=== PATIENT | female | born 1985 | race African-American/Black ===

== ENCOUNTER 2016-08-28 07:16 | Emergency (ER) | payer MEDICAID, OTHER ==
[~2016-08-28] VITALS: Ht 177.8 cm; Wt 80.0 kg
[~2016-08-28 07:16] MED LIST: CYCL-36 PO; DICL50 PO
[2016-08-28 07:22] VITALS: BP 121/81; PULSE 88; RESP 16; TEMP 98; O2SAT 100
[2016-08-28] MEDS ORDERED: IBUP800T23 PO (07:44)
[2016-08-28] MEDS ORDERED: CYCL1TAB29 PO (07:44)
[2016-08-28] MEDS ORDERED: ORPHENADRINE INJ 60 MG/2 ML AMP IM ONE (07:45)
[2016-08-28] MEDS ORDERED: KETOROLAC TROMETHAMINE 60 MG/2 ML (IM) VIAL IM ONE (07:45)
--- NOTE | 2016-08-28 07:46 | PD ---
HPI Chief Complaint: Back/ Neck Pain or Injury Time Seen by Provider: 07:37 Travel History International Travel<30 days: No Contact w/Intl Traveler<30days: No Traveled to known affect area: No History of Present Illness HPI 30-year-old female presents to the emergency Department with complaint of right lower back pain 5 days. She has history of chronic low back pain for many years that is similar to her current symptoms. She states she's been working for the last 5 days and her pain has gotten worse. Denies injury, heavy lifting , straining. Denies fever, chills, nausea, vomiting. Denies encopresis, incontinence, saddle anesthesias. Denies paresthesias, loss of sensation, decreased range of motion, decreased strength to all extremities. Denies urinary urgency, frequency, hesitancy, dysuria. Denies IV drug use. Denies cancer. Is ambulatory with a guarded gait. Pain is aggravated with palpation, walking, movement. No known relieving factors. Has not tried any treatments or medications to alleviate her symptoms. Last menstrual period was this month. Denies risk of . Denies significant past medical history. No known allergies. No other modifying factors or associated signs and symptoms. PFSH Past Medical History Diminished Hearing: No ?: Not LMP: AUGUST 2016 : 4 Para: 4 Miscarriage: 0 Tubal Ligation: Yes Past Surgical History Other Surgery: Yes (BREAST SURGERY) Social History Alcohol Use: No Tobacco Use: No Substance Use: No Allergies-Medications (Allergen,Severity, Reaction): Coded Allergies: No Known Allergies (Unverified , 08/28/16) Reported Meds & Prescriptions Reported Meds & Active Scripts Active Flexeril (Cyclobenzaprine HCl) 10 Mg Tab 10 Mg PO TID PRN Ibuprofen 800 Mg Tab 800 Mg PO Q6HR PRN Review of Systems Except as stated in HPI: all other systems reviewed are Neg Physical Exam Narrative GENERAL: Well-nourished, well-developed female patient, in no acute distress; afebrile, nontoxic-appearing SKIN: Warm and dry. HEAD: Atraumatic. Normocephalic. EYES: Pupils equal and round. No scleral icterus. No injection or drainage. ENT: Mucosa pink and moist. Airway patent. NECK: Trachea midline. CARDIOVASCULAR: Regular rate and rhythm. No murmur appreciated. RESPIRATORY: No accessory muscle use. Breath sounds clear and equal bilaterally. No Retractions or tachypnea. GASTROINTESTINAL: Abdomen soft, non-tender, nondistended. Positive bowel sounds. No hepato-splenomegaly, or palpable masses. No guarding. MUSCULOSKELETAL: Bilateral lower extremities supple and non-tense with 2+ pedal pulses and sensory intact; with full range of motion and 5/5 strength. DTRs 2+. Active dorsiflexion and extension of bilateral feet. Right straight leg raise is positive for low back pain. Left straight leg raise is negative for low back pain. Ambulatory with guarded gait. Sitting up in bed at 90. No obvious deformities. No clubbing. No cyanosis. No edema. BACK: Right CVA tenderness. No midline point tenderness on palpation of the lumbar or thoracic spine. Tenderness on palpation of right iliosacral area. No obvious deformities. NEUROLOGICAL: Awake and alert. Oriented 3. No obvious cranial nerve deficits. Motor grossly within normal limits. Normal speech. Moves all extremities. 5/5 strength to all extremities. Sensory intact. PSYCHIATRIC: Appropriate mood and affect; insight and judgment normal. Data Data Last Documented VS Vital Signs Date Time Temp Pulse Resp B/P Pulse Ox O2 Delivery O2 Flow Rate FiO2 08/28/16 07:22 98.0 88 16 121/81 100 Orders Urinalysis - C+S If Indicated (08/28/16 07:35) Ketorolac Inj (Toradol Inj) (08/28/16 07:45) Orphenadrine Inj (Norflex Inj) (08/28/16 07:45) Labs Laboratory Tests Test 08/28/16 07:40 Urine Color LIGHT-YELLOW Urine Turbidity HAZY Urine pH 7.0 Urine Specific [place] 1.013 Urine Protein NEG mg/dL Urine Glucose (UA) NEG mg/dL Urine Ketones NEG mg/dL Urine Occult Blood NEG Urine Nitrite NEG Urine Bilirubin NEG Urine Urobilinogen LESS THAN 2.0 MG/DL Urine Leukocyte Esterase LARGE Urine RBC LESS THAN 1 /hpf Urine WBC 7 /hpf Urine Squamous Epithelial 2 /hpf Cells Microscopic Urinalysis Comment CULT NOT INDICATED MDM Medical Decision Making Medical Screen Exam Complete: Yes Emergency Medical Condition: Yes Medical Record Reviewed: Yes Differential Diagnosis Acute exacerbation of chronic low back pain, low back strain, urinary tract infection, pyelonephritis Narrative Course 30-year-old female with history of chronic low back pain with acute exacerbation of chronic low back pain. Afebrile in the ER. Denies fever, chills, nausea, vomiting. Denies IV drug use. Denies cancer. Patient is ambulatory with a gaurded gait. No midline point tenderness on palpation of the lumbar spine. I will order Urinalysis to rule out UTI. Patient denies urinary symptoms. Toradol and Norflex administered in the ER. Urinalysis ordered. 0815: Urinalysis without signs of infection. Ibuprofen and Flexeril prescribed for home. Patient is medically cleared and stable for discharge. Discussed reasons to return to the emergency department. Instructed patient to follow up with primary care provider. Patient agrees with treatment plan. The patients vital signs are stable and the patient is stable for outpatient follow- up and treatment. Patient discharged home, stable and in no acute distress. Diagnosis Primary Impression: Acute exacerbation of chronic low back pain Referrals: Primary Care Physician Patient Instructions: Acute Low Back Pain (ED), General Instructions Departure Forms: Tests/Procedures, Work Release Enter return to work date: Aug 30, 2016 Additional Instructions: Tylenol or ibuprofen as directed and as needed for pain Flexeril as prescribed and as needed for muscle spasms Heating pad and/or ice to affected area to reduce pain Avoid aggravating activities; increase activity as tolerated Follow-up with primary care provider Return to emergency department immediately with worsening of symptoms Med/Other Pt SpecificInfo: Prescription(s) given Scripts Cyclobenzaprine (Flexeril)10 Mg Tab10 Mg PO TID PRN (MUSCLE SPASM) #30 TAB Ref 0 Prov:Maria Dolores Rose 08/28/16 Ibuprofen 800 Mg Uax254 Mg PO Q6HR PRN (PAIN) #30 TAB Ref 0 Prov:Maria Dolores Rose 08/28/16 Disposition: DISCHARGE HOME Condition: Stable Maria Dolores Rose Aug 28, 2016 07:46
[2016-08-28 07:58] LABS: BLOOD, URINE NEG (NEG); COMMENT (UR) CULT NOT INDICATED; CULTURE IF INDICATED CULT NOT INDICATED; GLUCOSE,URINE NEG (NEG); KETONE, URINE NEG (NEG); NITRITE,URINE NEG (NEG); SQUAMOUS EPITHELIAL CELL URINE 2 /hpf (0-5); URINE COLOR LIGHT-YELLOW (YELLW/STRAW)
== END 2016-08-28 08:55 | disposition home or self-care (01) ==
LOC: NEPB 07:16
DX: M54.5 Low back pain (principal); G89.29 Other chronic pain
CPT/HCPCS: 81001; 96372; 99283; J1885; J2360

== ENCOUNTER 2017-02-10 09:17 | Emergency (ER) | payer OTHER ==
[~2017-02-10 09:17] MED LIST changes: -CYCL-36 PO; +CYCL1TAB29 PO; -DICL50 PO; +IBUP800T23 PO
[2017-02-10 11:04] LABS: MEAN CORPUSCULAR HGB CONC 28.5 % (32.0-36.0)
--- NOTE | 2017-02-10 11:07 | PD ---
HPI Chief Complaint: Cardiac Complaint Time Seen by Provider: 10:53 Travel History International Travel<30 days: No Contact w/Intl Traveler<30days: No Traveled to known affect area: No History of Present Illness HPI 31-year-old female complains of chest pain. Patient states that the chest pain started last night. Patient states the pain is stabbing pain substernally with radiation to the back. Patient states that she has short of breath with the chest pain. Patient states that the pains better today however has been intermittent since last night. Patient states that she has nausea and acid reflux symptoms with the pain. Patient denies history hypertension, diabetes, dyslipidemia. Patient is a smoker. Patient denies family history heart disease. Patient denies history of CAD. Patient denies history of GERD. Patient status post tubal ligation in the past. Patient states that she has menstruation period twice a month. 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 PFSH Past Medical History Medical History: Denies Significant Hx Diminished Hearing: No Tetanus Vaccination: > 5 Years Influenza Vaccination: No ?: Not LMP: 01/21/17 : 4 Para: 4 Miscarriage: 0 Tubal Ligation: Yes Past Surgical History Other Surgery: Yes (BREAST SURGERY) Social History Alcohol Use: Yes (wine on occasion) Tobacco Use: Yes (cigars) Substance Use: No Allergies-Medications (Allergen,Severity, Reaction): Coded Allergies: No Known Allergies (Unverified , 02/10/17) Reported Meds & Prescriptions Reported Meds & Active Scripts Active No Active Prescriptions or Reported Medications Review of Systems General / Constitutional: No: Fever Eyes: No: Visual changes HENT: No: Headaches Cardiovascular: Positive: Chest Pain or Discomfort Respiratory: No: Shortness of Breath Gastrointestinal: Positive: Nausea, No: Abdominal Pain Genitourinary: No: Dysuria Musculoskeletal: No: Pain Skin: No Rash Neurologic: No: Weakness Psychiatric: No: Depression Endocrine: No: Polydipsia Hematologic/Lymphatic: No: Easy Bruising Physical Exam Narrative GENERAL: Well-nourished, well-developed patient. SKIN: Focused skin assessment warm/dry. HEAD: Normocephalic. EYES: No scleral icterus. No injection or drainage. NECK: Supple, trachea midline. No JVD or lymphadenopathy. CARDIOVASCULAR: Regular rate and rhythm without murmurs, gallops, or rubs. RESPIRATORY: Breath sounds equal bilaterally. No accessory muscle use. GASTROINTESTINAL: Abdomen soft, nondistended. Patient has mild tenderness on palpation of the epigastric area. No rebound tenderness. No mass. Rectal exam Hemoccult negative. MUSCULOSKELETAL: No cyanosis, or edema. BACK: Nontender without obvious deformity. No CVA tenderness. Neurologic exam normal. Data Data Last Documented VS Vital Signs Date Time Temp Pulse Resp B/P Pulse Ox O2 Delivery O2 Flow Rate FiO2 02/10/17 11:26 100 02/10/17 11:25 98.4 79 15 116/70 Room Air Orders Complete Blood Count With Diff (02/10/17 11:01) Comprehensive Metabolic Panel (02/10/17 11:) Creatine Kinase (Cpk) (02/10/17 11:01) Troponin I (02/10/17 11:01) Lipase (02/10/17 11:01) Chest, Single Ap (02/10/17 11:) Iv Access Insert/Monitor (02/10/17 11:) Ecg Monitoring (02/10/17 11:) Oximetry (02/10/17 11:01) Pantoprazole Inj (Protonix Inj) (02/10/17 11:15) Al-Mag Hy-Si 40-40-4 Mg/Ml Liq (Mag-Al P (02/10/17 11:15) Ceruy-Ibdojm-Lmeqav-Pb Liq ( Liq (02/10/17 11:15) Labs Laboratory Tests Test 02/10/17 11:15 White Blood Count 3.2 TH/MM3 Red Blood Count 3.77 MIL/MM3 Hemoglobin 6.7 GM/DL Hematocrit 23.4 % Mean Corpuscular Volume 62.0 FL Mean Corpuscular Hemoglobin 17.7 PG Mean Corpuscular Hemoglobin 28.5 % Concent Red Cell Distribution Width 17.7 % Platelet Count 223 TH/MM3 Mean Platelet Volume 9.3 FL Neutrophils (%) (Auto) 27.6 % Lymphocytes (%) (Auto) 57.0 % Monocytes (%) (Auto) 12.5 % Eosinophils (%) (Auto) 1.7 % Basophils (%) (Auto) 1.2 % Neutrophils # (Auto) 0.9 TH/MM3 Lymphocytes # (Auto) 1.8 TH/MM3 Monocytes # (Auto) 0.4 TH/MM3 Eosinophils # (Auto) 0.1 TH/MM3 Basophils # (Auto) 0.0 TH/MM3 CBC Comment AUTO DIFF Sodium Level 142 MEQ/L Potassium Level 3.4 MEQ/L Chloride Level 108 MEQ/L Carbon Dioxide Level 26.3 MEQ/L Anion Gap 8 MEQ/L Blood Urea Nitrogen 6 MG/DL Creatinine 0.56 MG/DL Estimat Glomerular Filtration 153 ML/MIN Rate Random Glucose 80 MG/DL Calcium Level 8.3 MG/DL Total Bilirubin 0.5 MG/DL Aspartate Amino Transf 11 U/L (AST/SGOT) Alanine Aminotransferase 17 U/L (ALT/SGPT) Alkaline Phosphatase 60 U/L Total Creatine Kinase 77 U/L Troponin I LESS THAN 0.02 NG/ML Total Protein 6.8 GM/DL Albumin 3.6 GM/DL Lipase 185 U/L MDM Medical Decision Making Medical Screen Exam Complete: Yes Emergency Medical Condition: Yes Interpretation(s) Last Impressions Chest X-Ray 02/10/17 1101 Signed Impressions: Service Date/Time: January 11:28 - CONCLUSION: No acute cardiopulmonary disease. Johnny Vasquez MD 12:20 PM. CBC WBC 3.2. Hemoglobin 6.7. Hematocrit 23.4. MCV 62.0. 57 lymphs. 12 monos. Potassium 3.4. Chloride 108. Cardiac enzymes are normal. Differential Diagnosis Differential diagnosis including GERD, esophagitis, gastritis, PUD, pancreatitis , cholecystitis, angina, ND, PE, pneumothorax. Narrative Course 31-year-old female with chest pain and nausea and reflux symptom. Protonix 40 mg IV. Maalox 30 cc by mouth. 10 cc by mouth. Patient is severe anemic. Patient was advised to be admitted. Patient refuses admission. Patient wants to go home and take medications. Diagnosis Primary Impression: Atypical chest pain Additional Impressions: Esophagitis Anemia Qualified Code: D64.9 - Anemia, unspecified type Patient Instructions: General Instructions Additional Instructions: Take medications as directed. 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 Return if worse. Med/Other Pt SpecificInfo: Prescription(s) given Scripts Pantoprazole (Protonix)20 Mg Tab20 Mg PO DAILY #30 TAB Ref 0 Prov:Darius Shaw MD 7/13/17 Ferrous Sulfate (Feosol)200 Mg Ihi419 Mg PO BIDPC #60 TAB Ref 0 Prov:Darius Shaw MD 02/10/17 Disposition: 01 DISCHARGE HOME Condition: Stable Darius Shaw MD Feb 10, 2017 11:07
[2017-02-10] MEDS ORDERED: ALUMINUM/MAGNESIUM/SIMETH 30 ML CUP PO ONE (11:15)
[2017-02-10] MEDS ORDERED: PANTOPRAZOLE SODIUM 40 MG VIAL IV PUSH ONE (11:15)
[2017-02-10] MEDS ORDERED: ATROPINE/SCOPOLAM/HYOSCYAM/PB ELIXIR 10 ML CUP PO ONE (11:15)
[2017-02-10 11:25] VITALS: BP 116/70; PULSE 79; RESP 15; TEMP 98.4; O2SAT 99
[2017-02-10 11:26] VITALS: O2SAT 100
[2017-02-10 11:36] LABS: AUTOMATED NEUTROPHIL # 0.9 TH/MM3 (1.8-7.7); BASOPHIL % 1.2 % (0.0-2.0); EOSINOPHIL # 0.1 TH/MM3 (0-0.4); EOSINOPHIL % 1.7 % (0.0-4.0); HEMATOCRIT 23.4 % (35.0-46.0); LYMPHOCYTE # 1.8 TH/MM3 (1.0-4.8); MEAN CORPUSCULAR HEMOGLOBIN 17.7 PG (27.0-34.0); MONO % 12.5 % (0.0-8.0); NEUT % 27.6 % (16.0-70.0); PLATELET COUNT 223 TH/MM3 (150-450); RED BLOOD COUNT 3.77 MIL/MM3 (4.00-5.30); RED CELL DISTRIBUTION WIDTH 17.7 % (11.6-17.2); WHITE BLOOD COUNT 3.2 TH/MM3 (4.0-11.0)
[2017-02-10 11:38] LABS: HEMO FLAGS AUTO DIFF
[2017-02-10 11:55] LABS: ALT (GPT) 17 U/L (10-53); ANION GAP 8 MEQ/L (5-15); AST (GOT) 11 U/L (15-37); BICARBONATE 26.3 MEQ/L (21.0-32.0); BLOOD UREA NITROGEN 6 MG/DL (7-18); CHLORIDE 108 MEQ/L (98-107); GLOMERULAR FILTRATION RATE 153 ML/MIN (>89); POTASSIUM 3.4 MEQ/L (3.5-5.1); SODIUM (NA) 142 MEQ/L (136-145)
[2017-02-10 11:58] LABS: ALKALINE PHOSPHATASE 60 U/L (45-117); TOTAL BILIRUBIN ADULT 0.5 MG/DL (0.2-1.0)
--- NOTE | 2017-02-10 11:59 | RADRPT ---
EXAM DATE/TIME: 02/10/2017 11:28 [facility] COMPARISON: CHEST SINGLE AP, January 12, 2015, 23:58. INDICATIONS : Chest pains, shortness of breath. MEDICAL HISTORY : None. SURGICAL HISTORY : None. ENCOUNTER: Initial ACUITY: 2 days PAIN SCORE: 6/10 LOCATION: Left chest FINDINGS: The lungs are clear without infiltrate, nodule, or mass. There is no appreciable pleural effusion fo r technique. Heart and mediastinum are unremarkable. CONCLUSION: No acute cardiopulmonary disease. Johnny Vasquez MD on February 10, 2017 at 11:57 Board Certified Radiologist. This report was verified electronically.
[2017-02-10 12:00] LABS: CREATINE KINASE 77 U/L (26-192)
[2017-02-10 12:27] LABS: NEUTROPHIL # MANUAL DIFF 0.9 TH/MM3 (1.8-7.7); POLYS (SEG NEUTROPHILS) 28 % (16-70); WBC DIFF SAMPLE 100
[2017-02-10 12:28] LABS: OVALOCYTES 1+ (NORMAL); PLATELET ESTIMATE SMEAR NORMAL (NORMAL); PLATELET MORPHOLOGY NORMAL (NORMAL); SCAN/DIFF FINAL DIFF MANUAL; TEARDROP RBCS 1+ (NORMAL)
[2017-02-10] MEDS ORDERED: FERR200T PO (12:39)
[2017-02-10] MEDS ORDERED: PANT20 PO (12:39)
--- NOTE | 2017-02-12 11:17 | EKG ---
Date Performed: 02/10/2017 Time Performed: 10:13:08 PTAGE: 31 years EKG: Sinus rhythm NORMAL ECG NO PREVIOUS TRACING DOCTOR: Atif Sanchez Interpretating Date/Time 02/12/2017 11:08:11
== END 2017-02-10 13:55 | disposition home or self-care (01) ==
LOC: NEPD 09:17
DX: R07.89 Other chest pain (principal); K20.9 Esophagitis, unspecified; D64.9 Anemia, unspecified; R11.0 Nausea; R06.02 Shortness of breath; F17.290 Nicotine dependence, other tobacco product, uncomplicated
CPT/HCPCS: 71010; 80053; 82550; 83690; 84484; 85007; 85027; 93005; 96374; 99284; C9113